=== PATIENT | female | born 1990 | race Caucasian/White ===

== ENCOUNTER → 2017-12-16 08:52 | Outpatient (CLI) | payer MEDICAID ==
[2017-12-16 10:32] LABS: HCG SERUM NEGATIVE (NEGATIVE)
== END | disposition home or self-care (01) ==
LOC: D.NM 08:52
PROVIDERS: Internal Medicine Gastroenterology
DX: R10.13 Epigastric pain (principal); R11.2 Nausea with vomiting, unspecified

== ENCOUNTER → 2017-12-29 08:03 | Outpatient (CLI) | payer MEDICAID | END | disposition home or self-care (01) | LOC: D.NM 08:03 | DX: R10.9 Unspecified abdominal pain (principal); R11.2 Nausea with vomiting, unspecified ==